=== PATIENT | female | born 2005 | race Hispanic/Latino ===

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

== ENCOUNTER 2024-09-21 10:39 | Emergency (ER) | payer SELFPAY ==
[~2024-09-21] VITALS: Ht 160 cm; Wt 83.5 kg
[~2024-09-21 10:39] MED LIST: CIPRO500 MG PO; DICYCLOMINE HCL10 MG PO; ONDANSETRON ODT4 MG PO; ULTRAM 50MG50 MG PO
[2024-09-21] MEDS: KETOROLAC TROMETHAMINE 30 MG/ML VIAL IV STA (11:47)
[2024-09-21] MEDS: ONDANSETRON HCL INJ 2MG/ML 2ML 2 MG/ML VIAL IV STA (11:47)
[2024-09-21] MEDS: ACETAMINOPHEN 325 MG TAB PO ONE (11:49)
[2024-09-21] MEDS: SODIUM CHLORIDE 0.9% 1000ML 1,000 ML IV STA ×2 (11:49→11:50)
[2024-09-21 12:00] LABS: BASOPHILS % 0.7 % (0.0-1.0); EOSINOPHILS % 0.2 % (0.0-6.0); HEMATOCRIT 42.5 % (34.2-44.1); LYMPHOCYTES % 22.7 % (18.0-39.1); MEAN CORPUSCULAR HEMOGLOBIN 29.5 pg (28-32); MEAN CORPUSCULAR HGB CONC 30.6 g/dL (31-35); MEAN CORPUSCULAR VOLUME 96.6 fL (81-99); MONOCYTES # (AUTO) 0.5 (0.2-0.8); MONOCYTES % 12.3 % (4.4-11.3); NEUTROPHILS # (AUTO) 2.7 (2.1-6.9); NEUTROPHILS % 64.1 % (38.7-80.0); PLATELET COUNT 169 x10e3/uL (140-360); RED CELL DISTRIBUTION WIDTH 12.6 % (11.7-14.4); WHITE BLOOD COUNT 4.22 x10e3/uL (4.8-10.8)
[2024-09-21 12:20] LABS: INR 0.92; PROTHROMBIN TIME 12.9 seconds (11.9-14.5)
[2024-09-21 12:20] LABS: BILIRUBIN,URINE NEGATIVE (NEGATIVE); CLARITY,URINE CLOUDY (CLEAR); COLOR,URINE YELLOW (YELLOW); GLUCOSE, URINE NEGATIVE (NEGATIVE); KETONES,URINE NEGATIVE (NEGATIVE); LEUKOCYTE ESTERASE ,URINE NEGATIVE (NEGATIVE); NITRITE,URINE NEGATIVE (NEGATIVE); PH,URINE 5.5 (5 - 7); PROTEIN,URINE DIPSTICK 1+ (NEGATIVE); URINE UROBILINOGEN 0.2 mg/dL (0.2 - 1)
[2024-09-21 12:21] LABS: PARTIAL THROMBOPLASTIN TIME 32.8 seconds (23.8-35.5)
[2024-09-21 12:24] LABS: CORONAVIRUS COVID-19 AG NEGATIVE (NEGATIVE); INFLUENZA A AG NEGATIVE (NEGATIVE); INFLUENZA B AG NEGATIVE (NEGATIVE)
[2024-09-21 12:30] LABS: ALANINE AMINOTRANSFERASE 81 IU/L (0-55); ALBUMIN 4.3 g/dL (3.5-5.0); ALBUMIN/GLOBULIN RATIO 1.1 (0.8-2.0); ALKALINE PHOSPHATASE 67 IU/L (40-150); ANION GAP 16.9 mmol/L (8-16); BILIRUBIN,TOTAL 0.3 mg/dL (0.2-1.2); BLOOD UREA NITROGEN 12 mg/dL (7-26); BUN/CREATININE RATIO 13 (6-25); CALCIUM 9.7 mg/dL (8.4-10.2); CARBON DIOXIDE 23 mmol/L (22-29); CHLORIDE 102 mmol/L (98-107); CREATININE, SERUM 0.92 mg/dL (0.57-1.11); EST GLOMERULAR FILTRATION RATE 91 ML/MIN (>=60); GLUCOSE 104 mg/dL (74-118); POTASSIUM 3.9 mmol/L (3.5-5.1); SODIUM 138 mmol/L (136-145); TOTAL PROTEIN 8.1 g/dL (6.5-8.1)
[2024-09-21 12:37] LABS: BACTERIA,URINE MANY /HPF; EPITHELIAL CELLS,URINE MODERATE /LPF; RBC,URINE 0-5 /HPF (0-5); WBC,URINE (MAN) 0-5 /HPF (0-5)
[2024-09-21 12:59] VITALS: PULSE 91; RESP 16; TEMP 99.2; O2SAT 99
[2024-09-21 13:14] LABS: MAGNESIUM 1.7 MG/DL (1.3-2.1)
== END 2024-09-21 14:43 | disposition home or self-care (01) ==
LOC: ER 10:43
DX: R50.9 Fever, unspecified (principal); B34.9 Viral infection, unspecified; R10.9 Unspecified abdominal pain; R30.0 Dysuria; F32.A Depression, unspecified; Z11.52 Encounter for screening for COVID-19
CPT/HCPCS: 36415; 71045; 74176; 80053; 81001; 83518; 83605; 83735; 84702; 85025; 85610; 85730; 87040; 87070; 87086; 87428; 99284; J1885; J2405; J7030

== ENCOUNTER 2025-05-27 09:42 | Emergency (ER) | payer SELFPAY ==
[~2025-05-27] VITALS: Ht 162.6 cm; Wt 81.6 kg
[2025-05-27 10:00] VITALS: TEMP 98.4
[2025-05-27] MEDS ORDERED: MUPIROCIN22 GM TOP (10:17)
[2025-05-27] MEDS ORDERED: DOXYCYCLINE HY100 MG PO (10:17)
[2025-05-27] MEDS: MUPIROCIN 2% OINT 22 GM TUBE TOP ONE (10:58)
[2025-05-27 10:59] VITALS: PULSE 74; RESP 16; O2SAT 100
== END 2025-05-27 11:01 | disposition home or self-care (01) ==
LOC: ER 09:56
DX: L60.0 Ingrowing nail (principal)
CPT/HCPCS: 99282